=== PATIENT | female | born 1930 | race Caucasian/White ===

== ENCOUNTER 2017-03-24 10:24 | Emergency (ER) | payer MEDICARE, BC ==
[2017-03-24 10:56] VITALS: BP 140/84
--- NOTE | 2017-03-24 11:19 | EDM.PDOC ---
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 States that she was diagnosed with a yeast infection and given Premarin. She used the entire tube in one week. Has been using over the counter vagisil for symptoms relief with no resolve. 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 [No Known Home Meds] 03/24/17 [History] Past Medical History - Past Surgical History Musculoskeletal Surgical History: Reports: Hip Replacement Social & Family History - Tobacco Use Smoking Status *Q: Never Smoker - Caffeine Use Caffeine Use: Reports: Coffee - Recreational Drug Use Recreational Drug Use: No ED ROS GENERAL - Review of Systems Review Of Systems: See Below : Reports: Dysuria, Pain Skin: Reports: Erythema ED EXAM, RENAL/ - Physical Exam Exam: See Below Exam Limited By: No Limitations General Appearance: Alert, WD/WN, No Apparent Distress Respiratory/Chest: No Respiratory Distress, Lungs Clear, Normal Breath Sounds, No Accessory Muscle Use, Chest Non-Tender Cardiovascular: Normal Peripheral Pulses, Regular Rate, Rhythm, No Edema, No Gallop, No JVD, No Murmur, No Rub GI/Abdominal: Normal Bowel Sounds, Soft, Non-Tender, No Organomegaly, No Distention, No Abnormal Bruit, No Mass (Female) Exam: Vaginal Discharge (white discharge noted), Vaginal Lesions ( erythematous lesion to bilateral inner labia, outer labia edematous) Course - Vital Signs Last Recorded V/S: Last Vital Signs Temp 96 F 03/24/17 10:39 Pulse 82 03/24/17 10:39 Resp 16 03/24/17 10:39 BP 140/84 03/24/17 10:56 Pulse Ox 96 03/24/17 10:39 - Orders/Labs/Meds Meds: Medications Discontinued Medications Generic Name Dose Route Start Last Admin Trade Name Ramiro PRN Reason Stop Dose Admin Fluconazole 100 mg 03/24/17 11:23 03/24/17 11:36 Diflucan PO 03/24/17 11:24 100 mg ONETIME ONE Administration Lorazepam 0.5 mg 03/24/17 11:23 03/24/17 11:36 Ativan PO 03/24/17 11:24 0.5 mg ONETIME ONE Administration Departure - Departure Time of Disposition: 11:43 Disposition: Home, Self-Care 01 Condition: Good Clinical Impression: Candidal vulvovaginitis - Discharge Information Instructions: Vaginal Yeast Infection, Adult Forms: ED Department Discharge Additional Instructions: You will take the pills every three days until gone. Keep the skin clean and dry and apply the ointment twice a day as needed for the irritation. Take the Hydroxyzine as needed. Follow up with your DrVenessa in 1 week. You may continue to use the premarin however only place as thin smear twice a day. return for any worsening symptoms
[2017-03-24] MEDS ORDERED: LORazepam 0.5 MG Tab PO ONE (11:23)
[2017-03-24] MEDS ORDERED: Fluconazole 100 MG Tab PO ONE (11:23)
== END 2017-03-24 11:54 | disposition home or self-care (01) ==
LOC: DL.ED 10:24
DX: B37.3 Candidiasis of vulva and vagina (principal); Z96.649 Presence of unspecified artificial hip joint
CPT/HCPCS: 99283; A9270

== ENCOUNTER 2018-03-14 11:28 | Emergency (ER) | payer MEDICARE, BC ==
--- NOTE | 2018-03-14 11:30 | EDM.PDOC ---
"ED HPI GENERAL MEDICAL PROBLEM - General Chief Complaint: Syncope Stated Complaint: FAINTED IN CHAIR. [phone] Time Seen by Provider: 03/14/18 11:30 Source of Information: Reports: Patient, Family, Old Records, RN, RN Notes Reviewed History Limitations: Reports: No Limitations - History of Present Illness INITIAL COMMENTS - FREE TEXT/NARRATIVE: Pt presents to ER from home by POV with c/o a witness syncopal episode while her daughter was there to visit. Pt lives alone and has been independent despite mild dementia. Recently she began have episodes of lightheadedness, and was seen in clinic. She is wearing a cardiac event monitor, and her doctor started her on metoprolol 12.5mg daily. She denies chest pain, palpitations, edema, orthopnea, cough, shortness of breath, headache, N/V/D, wt gain or loss, or any neuro. deficits. Onset: Today Duration: Getting Worse, Recurring Location: Reports: Generalized Severity: Severe Improves with: Reports: None Worsens with: Reports: None Associated Symptoms: Reports: No Other Symptoms - Related Data Allergies Allergy/AdvReac Type Severity Reaction Status Date / Time No Known Allergies Allergy Verified 03/14/18 11:34 Home Meds: Home Meds . [No Known Home Meds] 03/24/17 [History] Past Medical History Cardiovascular History: Reports: High Cholesterol Neurological History: Reports: Alzheimers Disease - Past Surgical History Musculoskeletal Surgical History: Reports: Hip Replacement Social & Family History - Family History Family Medical History: Noncontributory - Caffeine Use Caffeine Use: Reports: Coffee - Alcohol Use Alcohol Use History: No - Recreational Drug Use Recreational Drug Use: No - Living Situation & Occupation Living situation: Reports: , Alone Occupation: Retired ED ROS GENERAL - Review of Systems Review Of Systems: ROS reveals no pertinent complaints other than HPI. - Physical Exam Exam: See Below Exam Limited By: No Limitations General Appearance: Alert, WD/WN, No Apparent Distress, Other (well appearing, elderly female) Eye Exam: Bilateral Eye: EOMI, Normal Inspection, PERRL Ears: Normal External Exam, Hearing Grossly Normal Nose: Normal Inspection, Normal Mucosa, No Blood Throat/Mouth: Normal Inspection, Normal Lips, Normal Teeth, Normal Gums, Normal Oropharynx, Normal Voice, No Airway Compromise Head Exam: Atraumatic, Normocephalic Neck: Normal Inspection, Supple, Non-Tender, Full Range of Motion Respiratory/Chest: No Respiratory Distress, Lungs Clear, Normal Breath Sounds, No Accessory Muscle Use, Chest Non-Tender, Decreased Breath Sounds Cardiovascular: Normal Peripheral Pulses, Regular Rate, Rhythm, No Edema, No Gallop, No JVD GI/Abdominal: Normal Bowel Sounds, Soft, Non-Tender, No Distention. No: Guarding, Rigid, Rebound (Female) Exam: Deferred Rectal (Female) Exam: Deferred Neuro Exam (Abbreviated): Alert, Oriented (to person, place, and month), CN II- XII Intact, Normal Cognition, No Motor/Sensory Deficits Extremities: Normal Inspection, Normal Range of Motion, Non-Tender, No Pedal Edema, Normal Capillary Refill Psychiatric: Normal Affect, Normal Mood Skin Exam: Warm, Dry, Intact, Normal Color, No Rash EKG INTERPRETATION EKG Date: 03/14/18 Time: 11:34 Rhythm: Other (SR) Rate (Beats/Min): 90 [place]: LAD-Left [place] Deviation P-Wave: Present QRS: RBBB (and LAFB, prob. LVH) ST-T: Normal QT: Normal Comparison: NA - No Prior EKG EKG Interpretation Comments: Repeat EKG at 11:42HRS: Sinus vasyl, Rate 45, otherwise unchanged. Course - Vital Signs Last Recorded V/S: Last Vital Signs Temp 35.9 C 03/14/18 11:35 Pulse 90 03/14/18 11:35 Resp 18 03/14/18 11:35 BP 147/83 H 03/14/18 11:35 Pulse Ox 95 03/14/18 11:35 HR on tele. dropped to 35 BPM with pt reporting no symptoms, and unaware of slow rate. - Orders/Labs/Meds Orders: Active Orders 24 hr Category Date Time Status EKG 12 Lead [EKG Documentation Completion] [RC] STAT Care 03/14/18 11:35 Active EKG 12 Lead [EKG Documentation Completion] [RC] STAT Care 03/14/18 11:42 Active Peripheral IV Care [RC] . DIRECTED Care 03/14/18 11:35 Active Chest 1V Frontal [CR] Stat Exams 03/14/18 11:42 Taken UA W/MICROSCOPIC [URIN] Stat Lab 03/14/18 11:42 Ordered Sodium Chloride 0.9% [Saline Flush] Med 03/14/18 11:35 Active 10 ml FLUSH ASDIRECTED PRN Peripheral IV Insertion Adult [OM.PC] Stat Oth 03/14/18 11:35 Ordered Medication Orders Sodium Chloride (Saline Flush) 10 ml FLUSH ASDIRECTED PRN PRN Reason: Keep Vein Open Last Admin: 03/14/18 11:47 Dose: 10 ml Labs: Laboratory Tests 03/14/18 03/14/18 03/14/18 Range/Units 11:39 11:39 11:39 WBC 6.2 (5.0-10.0) 10^3/uL RBC 4.37 (4.2-5.4) 10^6/uL Hgb 13.3 (12.0-16.0) g/dL Hct 40.7 (37.0-47.0) % MCV 93.1 (80-100) fL MCH 30.4 (27.0-34.0) pg MCHC 32.7 L (33.0-35.0) g/dL Plt Count 295 (150-450) 10^3/uL Neut % (Auto) 53.8 (42.2-75.2) % Lymph % (Auto) 28.1 (20.5-50.1) % Bowman % (Auto) 14.1 H (2-8) % Eos % (Auto) 3.5 H (1.0-3.0) % Baso % (Auto) 0.5 (0.0-1.0) % Sodium 141 (135-145) mmol/L Potassium 3.9 (3.6-5.0) mmol/L Chloride 109 (101-111) mmol/L Carbon Dioxide 25.0 (21.0-31.0) mmol/L Anion Gap 10.9 BUN 21 H (7-18) mg/dL Creatinine 1.2 (0.6-1.3) mg/dL Est Cr Clr Drug Dosing 26.29 mL/min Estimated GFR (MDRD) 42 BUN/Creatinine Ratio 17.50 Glucose 87 (74-105) mg/dL Calcium 9.0 (8.4-10.2) mg/dl Magnesium 2.0 (1.8-2.5) mg/dL Total Bilirubin 0.6 (0.2-1.0) mg/dL AST 21 (10-42) IU/L ALT 19 (10-60) IU/L Alkaline Phosphatase 67 (42-121) IU/L Troponin I < 0.02 (0.00-0.02) ng/ml B-Natriuretic Peptide 173 H (0-100) pg/ml Total Protein 6.7 (6.7-8.2) g/dl Albumin 4.0 (3.2-5.5) g/dl Globulin 2.7 Albumin/Globulin Ratio 1.48 TSH, Ultra Sensitive 1.89 (0.45-5.33) uIu/mL Meds: Medications Generic Name Dose Route Start Last Admin Trade Name Freq PRN Reason Stop Dose Admin Sodium Chloride 10 ml 03/14/18 11:35 03/14/18 11:47 Saline Flush FLUSH 10 ml ASDIRECTED PRN Administration Keep Vein Open Discontinued Medications Generic Name Dose Route Start Last Admin Trade Name Freq PRN Reason Stop Dose Admin Atropine Sulfate 0.5 mg 03/14/18 12:25 03/14/18 12:30 Atropine IVPUSH 03/14/18 12:26 0.5 mg ONETIME ONE Administration Atropine Sulfate Confirm 03/14/18 12:28 03/14/18 12:30 Atropine 0.1 Mg/Ml Administered 03/14/18 12:29 Not Given Dose 1 mg .ROUTE .[facility] ONE - Radiology Interpretation Free Text/Narrative:: [facility] Final Radiology Report Call: [phone] assistance Online chat: [email or web address] Name Name: MEME DUFFY Age: 87Years F Date: 03/14/2018 SSN: -- : [id number] Study: XR CHEST 1 VIEW Requesting Physician: KEN WILLIAM Images: 1 Addl Studies: Provided Clinical History: Contrast: Contrast Medium: Contrast Amount: Contrast Method: Page 1 of 2 EXAM: XR Chest, 1 View EXAM DATE/TIME: 03/14/2018 11:49 AM CLINICAL HISTORY: 87 years old, female; Signs and symptoms; Other: Recurrent syncope; Prior surgery; Surgery date: 6+ months TECHNIQUE: Frontal view of the chest. COMPARISON: No relevant prior studies available. FINDINGS: Lungs: Atelectasis and/or fibrosis noted within both lung bases, greater on the right. Pleural space: Unremarkable. No pneumothorax. Heart: The heart demonstrates moderate diffuse enlargement. Mediastinum: Unremarkable. Bones/joints: The thoracic spine demonstrates mild degenerative changes at multiple levels. Vasculature: The vasculature demonstrates diffuse mild atherosclerotic calcification. Tubes, lines and devices: Monitoring device overlies the left upper chest. alarm security or surveillance monitor leads present on the chest wall. IMPRESSION: Atelectasis and/or fibrosis noted within both lung bases, greater on the right. Thank you for allowing us to participate in the care of your patient. MEME DUFFY | Final Radiology Report CONFIDENTIALITY STATEMENT This report is intended only for use by the referring physician, and only in accordance with law. If you received this in error, call [phone]. Page 2 of 2 Dictated and Authenticated by: Aj Thomas DO 03/14/2018 12:08 PM Central Time - Re-Assessments/Exams Free Text/Narrative Re-Assessment/Exam: 03/14/18 12:22 Positive response with Atropine 0.5mg IVP x1 with HR increasing from 33 to 56. Departure - Departure Time of Disposition: 12:38 Disposition: DC/Tfer to Acute Hospital 02 Condition: Critical Clinical Impression: Syncope, cardiogenic, Bradycardia with 31-40 beats per minute - Discharge Information Referrals: Richardson Harman MD [Primary Care Provider] - Forms: ED Department Discharge, Interfacility Transfer EMTALA - My Orders Last 24 Hours: My Active Orders 03/14/18 11:35 EKG 12 Lead [EKG Documentation Completion] [RC] STAT Peripheral IV Care [RC] . DIRECTED Sodium Chloride 0.9% [Saline Flush] 10 ml FLUSH ASDIRECTED PRN Peripheral IV Insertion Adult [OM.PC] Stat 03/14/18 11:42 EKG 12 Lead [EKG Documentation Completion] [RC] STAT Chest 1V Frontal [CR] Stat UA W/MICROSCOPIC [URIN] Stat - Assessment/Plan Last 24 Hours: My Active Orders 03/14/18 11:35 EKG 12 Lead [EKG Documentation Completion] [RC] STAT Peripheral IV Care [RC] . DIRECTED Sodium Chloride 0.9% [Saline Flush] 10 ml FLUSH ASDIRECTED PRN Peripheral IV Insertion Adult [OM.PC] Stat 03/14/18 11:42 EKG 12 Lead [EKG Documentation Completion] [RC] STAT Chest 1V Frontal [CR] Stat UA W/MICROSCOPIC [URIN] Stat"
[2018-03-14] MEDS ORDERED: Sodium Chloride 0.9% 10 ML Syringe FLUSH PRN (11:35)
[2018-03-14 11:37] VITALS: BP 147/83
[2018-03-14 12:11] LABS: ANION GAP 10.9; CHLORIDE,CL 109 mmol/L (101-111); SODIUM,NA 141 mmol/L (135-145)
[2018-03-14] MEDS ORDERED: Atropine 0.4 MG/ML SDV IVPUSH ONE ×2 (12:25→13:05)
[2018-03-14] MEDS ORDERED: Atropine 0.1 MG/ML 10 ML Syringe ONE ×2 (12:28→13:08)
== END 2018-03-14 13:44 ==
LOC: DL.ED 11:28
DX: R55 Syncope and collapse (principal); R00.1 Bradycardia, unspecified
CPT/HCPCS: 36415; 71045; 80053; 83735; 83880; 84443; 84484; 85025; 93005; 93010; 96374; 96376; 99284; 99285; J0461; J7050